=== PATIENT | female | born 2000 | race Asian ===

== ENCOUNTER 2022-06-12 22:01 | Emergency (ER) | payer OTHER ==
[~2022-06-12] VITALS: Ht 157.5 cm; Wt 52.5 kg
[2022-06-13] MEDS ORDERED: BACL10TA PO ×2 (00:35→01:19)
[2022-06-13] MEDS ORDERED: IBUP-1554 PO ×2 (00:35→01:19)
[2022-06-13 01:06] VITALS: BP 119/73
== END 2022-06-13 01:37 | disposition home or self-care (01) ==
LOC: EMS 22:07
DX: S13.4XXA Sprain of ligaments of cervical spine, initial encounter (principal); Z91.09 Other allergy status, other than to drugs and biological substances; V49.59XA Passenger injured in collision with other motor vehicles in traffic accident, initial encounter; Y93.89 Activity, other specified; Y92.89 Other specified places as the place of occurrence of the external cause; Y99.8 Other external cause status
CPT/HCPCS: 72040; 72070; 72100; 99284; Z7502